=== PATIENT | female | born 1985 | race Caucasian/White ===

== ENCOUNTER 2021-01-24 11:18 | Inpatient (IN) ==
[2021-01-24] MEDS ORDERED: Isovue-370 500 ML BOTTLE IVP ONE (12:04)
[2021-01-24] MEDS ORDERED: *HR* FentaNYL (PF) 100 MCG/2 ML VIAL IVP ONE (12:04)
[2021-01-24] MEDS ORDERED: Ondansetron 4 MG/2 ML VIAL IVP ONE (12:04)
[2021-01-24] MEDS ORDERED: 0.9 % Sodium Chloride 1,000 ML IVC ONE (12:04)
[2021-01-24 12:50] LABS: Basophils % 0.3 %; Eosinophils # 0.1 K/mcL (0.0-0.6); Eosinophils % 0.6 %; Hematocrit 42.3 % (35.3-44.9); Hemoglobin 15.4 g/dL (11.5-15.4); Immature Granulocytes % 0.2 % (0-4); Lymphocytes # 0.8 K/mcL (0.6-4.6); Lymphocytes % 7.8 %; Mean Corpuscular HGB Conc 36.4 g/dL (31.6-35.5); Mean Corpuscular Hemoglobin 34.4 pg (28.0-33.3); Mean Corpuscular Volume 94.4 fL (83.0-100.0); Monocytes # 0.5 K/mcL (0.0-1.3); Monocytes % 4.8 %; Platelet Count 257 K/mcL (140-400); Red Blood Count 4.48 M/mcL (3.82-4.97); Red Cell Distribution Width 12.5 % (11.5-14.5); Segmented Neutrophils % 86.3 %; White Blood Count 10.5 K/mcL (4.3-11.1)
[2021-01-24 13:11] LABS: Amorphous Sediment,Urine Few per hpf (None-Few); Bacteria,Urine Few per hpf (None-Few); Bilirubin,Urine Negative (Negative); Blood,Urine Negative (Negative); Clarity,Urine Turbid (Clear); Color,Urine Yellow (Yellow); Glucose,Urine (UA) Normal (Normal); Ketones,Urine 20 mg/dL (Negative); Leukocyte Esterase,Urine Negative (Negative); Mucus,Urine Few per lpf (None-Few); Nitrite,Urine Negative (Negative); Protein,Urine 50 mg/dL (Neg-Trace); Specific Gravity,Urine 1.028 (1.010-1.025); Squamous Epithelial Cell,Urine Moderate per hpf (None-Few); Urobilinogen,Urine Normal (Normal); WBC,Urine 0-3 per hpf (0-3)
[2021-01-24] MEDS ORDERED: *HR* HYDROmorphone (PF) 1 MG/ML SYRINGE IVP ONE (13:18)
[2021-01-24 13:30] LABS: Troponin I < 0.03 ng/mL (< 0.04)
[2021-01-24 13:31] LABS: Alanine Aminotransferase 33 Units/L (7-52); Albumin 4.6 g/dL (3.5-5.7); Albumin/Globulin Ratio 1.7 (1.1-2.2); Alkaline Phosphatase 64 Units/L (34-104); Aspartate Amino Transferase 31 Units/L (13-39); BUN/Creatinine Ratio 16 (6-26); Bilirubin,Direct 0.2 mg/dL (0.0-0.2); Bilirubin,Indirect 0.5 mg/dL (0.0-1.0); Bilirubin,Total 0.7 mg/dL (0.3-1.0); Blood Urea Nitrogen 8 mg/dL (6-20); Calcium 9.4 mg/dL (8.6-10.3); Carbon Dioxide 25 mEq/L (23-29); Chloride 98 mEq/L (98-107); Globulin 2.7 g/dL (2.4-3.5); Glucose 145 mg/dL (70-105); Lipase 1144 Units/L (11-82); Osmolality,Calculated 279 (280-300); Potassium 3.5 mEq/L (3.5-5.1); Sodium 134 mEq/L (136-145); Total Protein 7.3 g/dL (6.4-8.9); eGFR For African Americans > 60 (> 60); eGFR For Non-African Americans > 60 (> 60)
[2021-01-24] MEDS ORDERED: Naloxone 0.4 MG/ML INJ IVP PRN (14:01)
[2021-01-24] MEDS ORDERED: Ondansetron 4 MG/2 ML VIAL IVP PRN (14:01)
[2021-01-24] MEDS ORDERED: *HR* Dextrose 50 % in Water (Syg) 50 ML SYRINGE IVP PRN (14:03)
[2021-01-24] MEDS ORDERED: Dextrose Gel 15 GM/37.5 ML TUBE PO PRN ×2 (14:03)
[2021-01-24] MEDS ORDERED: D5% in Water 1,000 ML IVC PRN (14:03)
[2021-01-24] MEDS: Ringers Solution, Lactated 1,000 ML IVC SCH (15:36)
[2021-01-24] MEDS ORDERED: *HR* LORazepam 2 MG/ML VIAL IVP PRN ×3 (15:46→15:47)
[2021-01-24 17:54] LABS: Chol/HDL Ratio 1.4 (0-4.9); Cholesterol 181 mg/dL (< 200); Ethanol < 10 mg/dL (Less than 10); HDL Cholesterol 126 mg/dL (40-59); LDL Cholesterol,Calculated 48 mg/dL (< 100); Triglycerides 36 mg/dL (< 150)
[2021-01-24] MEDS: *HR* Heparin 5,000 UNIT/ML VIAL SQ SCH (17:57)
[2021-01-24] MEDS: Insulin LISPRO 300 UNITS/3 ML VIAL SUBQ SCH (17:57)
[2021-01-25] MEDS: Ringers Solution, Lactated 1,000 ML IVC SCH ×3 (00:07→17:20)
[2021-01-25] MEDS: Insulin LISPRO 300 UNITS/3 ML VIAL SUBQ SCH ×4 (00:08→17:47)
[2021-01-25 01:03] LABS: Basophils % 0.2 %; Eosinophils # 0.1 K/mcL (0.0-0.6); Eosinophils % 0.6 %; Hematocrit 43.8 % (35.3-44.9); Hemoglobin 15.5 g/dL (11.5-15.4); Immature Granulocytes % 0.4 % (0-4); Lymphocytes # 0.7 K/mcL (0.6-4.6); Lymphocytes % 8.4 %; Mean Corpuscular HGB Conc 35.4 g/dL (31.6-35.5); Mean Corpuscular Volume 96.1 fL (83.0-100.0); Mean Platelet Volume 9.9 fL (9.4-12.4); Monocytes # 0.3 K/mcL (0.0-1.3); Neutrophils # 7.2 K/mcL (1.6-8.9); Platelet Count 203 K/mcL (140-400); Red Blood Count 4.56 M/mcL (3.82-4.97); Red Cell Distribution Width 12.7 % (11.5-14.5); Segmented Neutrophils % 86.4 %; White Blood Count 8.3 K/mcL (4.3-11.1)
[2021-01-25 01:14] LABS: Activated Partial Thrombo Time 31.7 Seconds (26.0-36.0)
[2021-01-25 01:20] LABS: BUN/Creatinine Ratio 11 (6-26); Blood Urea Nitrogen 6 mg/dL (6-20); Calcium 8.4 mg/dL (8.6-10.3); Carbon Dioxide 24 mEq/L (23-29); Chloride 101 mEq/L (98-107); Glucose 96 mg/dL (70-105); Magnesium 1.5 mg/dL (1.6-2.6); Osmolality,Calculated 275 (280-300); Phosphorous 2.9 mg/dL (2.7-4.5); Potassium 3.5 mEq/L (3.5-5.1); Sodium 134 mEq/L (136-145); eGFR For African Americans > 60 (> 60); eGFR For Non-African Americans > 60 (> 60)
[2021-01-25] MEDS: *HR* Heparin 5,000 UNIT/ML VIAL SQ SCH ×2 (04:17→17:28)
[2021-01-25] MEDS: Pantoprazole 40 MG VIAL IVP SCH (07:41)
[2021-01-26 02:21] LABS: Basophils % 0.2 %; Eosinophils # 0.2 K/mcL (0.0-0.6); Eosinophils % 2.1 %; Hematocrit 41.2 % (35.3-44.9); Hemoglobin 14.8 g/dL (11.5-15.4); Immature Granulocytes % 0.4 % (0-4); Lymphocytes # 0.7 K/mcL (0.6-4.6); Lymphocytes % 7.8 %; Mean Corpuscular HGB Conc 35.9 g/dL (31.6-35.5); Mean Corpuscular Hemoglobin 34.7 pg (28.0-33.3); Mean Corpuscular Volume 96.7 fL (83.0-100.0); Mean Platelet Volume 10.3 fL (9.4-12.4); Monocytes # 0.5 K/mcL (0.0-1.3); Monocytes % 5.4 %; Neutrophils # 7.9 K/mcL (1.6-8.9); Platelet Count 160 K/mcL (140-400); Red Blood Count 4.26 M/mcL (3.82-4.97); Red Cell Distribution Width 12.5 % (11.5-14.5); Segmented Neutrophils % 84.1 %; White Blood Count 9.3 K/mcL (4.3-11.1)
[2021-01-26 02:33] LABS: Alanine Aminotransferase 15 Units/L (7-52); Albumin 3.3 g/dL (3.5-5.7); Albumin/Globulin Ratio 1.3 (1.1-2.2); Alkaline Phosphatase 57 Units/L (34-104); Aspartate Amino Transferase 15 Units/L (13-39); BUN/Creatinine Ratio 6 (6-26); Bilirubin,Total 0.6 mg/dL (0.3-1.0); Blood Urea Nitrogen 3 mg/dL (6-20); Calcium 8.1 mg/dL (8.6-10.3); Carbon Dioxide 23 mEq/L (23-29); Chloride 100 mEq/L (98-107); Globulin 2.5 g/dL (2.4-3.5); Glucose 74 mg/dL (70-105); Osmolality,Calculated 269 (280-300); Potassium 4.3 mEq/L (3.5-5.1); Sodium 132 mEq/L (136-145); Total Protein 5.8 g/dL (6.4-8.9); eGFR For African Americans > 60 (> 60); eGFR For Non-African Americans > 60 (> 60)
[2021-01-26] MEDS: Insulin LISPRO 300 UNITS/3 ML VIAL SUBQ SCH ×4 (03:29→18:15)
[2021-01-26] MEDS: Ringers Solution, Lactated 1,000 ML IVC SCH ×2 (04:45→10:23)
[2021-01-26] MEDS: *HR* Heparin 5,000 UNIT/ML VIAL SQ SCH ×2 (04:49→18:19)
[2021-01-26] MEDS: Pantoprazole 40 MG VIAL IVP SCH (10:24)
[2021-01-26] MEDS: Melatonin 3 MG TABLET PO PRN (21:27)
[2021-01-27 02:06] LABS: BUN/Creatinine Ratio 6 (6-26); Blood Urea Nitrogen 3 mg/dL (6-20); Calcium 8.5 mg/dL (8.6-10.3); Carbon Dioxide 26 mEq/L (23-29); Chloride 102 mEq/L (98-107); Glucose 162 mg/dL (70-105); Lipase 392 Units/L (11-82); Magnesium 1.8 mg/dL (1.6-2.6); Osmolality,Calculated 280 (280-300); Potassium 3.8 mEq/L (3.5-5.1); Sodium 135 mEq/L (136-145); eGFR For African Americans > 60 (> 60); eGFR For Non-African Americans > 60 (> 60)
[2021-01-27] MEDS: *HR* Heparin 5,000 UNIT/ML VIAL SQ SCH ×2 (05:12→18:15)
[2021-01-27] MEDS: Pantoprazole 40 MG VIAL IVP SCH (09:02)
[2021-01-27] MEDS: Melatonin 3 MG TABLET PO PRN (22:05)
[2021-01-28 02:00] LABS: BUN/Creatinine Ratio 16 (6-26); Blood Urea Nitrogen 8 mg/dL (6-20); Carbon Dioxide 23 mEq/L (23-29); Chloride 104 mEq/L (98-107); Glucose 138 mg/dL (70-105); Osmolality,Calculated 281 (280-300); Potassium 3.8 mEq/L (3.5-5.1); Sodium 135 mEq/L (136-145); eGFR For African Americans > 60 (> 60); eGFR For Non-African Americans > 60 (> 60)
[2021-01-28] MEDS: *HR* Heparin 5,000 UNIT/ML VIAL SQ SCH (06:15)
[2021-01-28 07:21] VITALS: BP 143/94; PULSE 65; TEMP 98.3; O2SAT 97
== END 2021-01-28 12:34 | disposition home or self-care (01) | DRG 440 ==
LOC: EMEROOARM 11:18 → 2ANU 11:18 → SUATTDRO 14:39 → 2ANU 15:11 → SUATTDRO 01-25 17:26
PROVIDERS: ADMIT Internal Medicine; ATTEND Internal Medicine

== ENCOUNTER 2022-02-21 05:20 | Inpatient (IN) ==
[~2022-02-21 05:20] MED LIST: Azithromycin 500 MG in 0.9 % Sodium Chloride 250 ML IVPB PRN; Famotidine 20 MG/2 ML VIAL IVP PRN; Lidocaine 1% 20 ML MDV INFILT PRN; Metoclopramide 10 MG/2 ML VIAL IVP PRN; Naloxone 0.4 MG/ML INJ IVP PRN; Ondansetron 4 MG/2 ML VIAL IVP PRN; miSOPROStoL 25 MCG TABLET PO PRN
[2022-02-21] MEDS: Ringers Solution, Lactated 1,000 ML IVC SCH ×2 (05:46→08:54)
[2022-02-21 05:51] LABS: Basophils # 0.1 K/mcL (0.0-0.2); Basophils % 0.4 %; Eosinophils # 0.2 K/mcL (0.0-0.6); Eosinophils % 1.6 %; Hematocrit 37.4 % (35.3-44.9); Hemoglobin 12.7 g/dL (11.5-15.4); Immature Granulocytes % 0.5 % (0-4); Lymphocytes # 2.3 K/mcL (0.6-4.6); Lymphocytes % 19.7 %; Mean Corpuscular Hemoglobin 29.8 pg (28.0-33.3); Mean Corpuscular Volume 87.8 fL (83.0-100.0); Mean Platelet Volume 10.1 fL (9.4-12.4); Monocytes # 0.9 K/mcL (0.0-1.3); Monocytes % 7.4 %; Neutrophils # 8.1 K/mcL (1.6-8.9); Platelet Count 309 K/mcL (140-400); Red Blood Count 4.26 M/mcL (3.82-4.97); Red Cell Distribution Width 13.2 % (11.5-14.5); Segmented Neutrophils % 70.4 %; White Blood Count 11.6 K/mcL (4.3-11.1)
[2022-02-21 06:06] LABS: Alanine Aminotransferase 18 Units/L (7-52); Aspartate Amino Transferase 18 Units/L (13-39); BUN/Creatinine Ratio 19 (6-26); Blood Urea Nitrogen 12 mg/dL (6-20); Lactate Dehydrogenase 214 Units/L (140-271); Uric Acid 5.6 mg/dL (2.3-7.6)
[2022-02-21] MEDS ORDERED: *HR* Nalbuphine 10 MG/ML AMPUL IV PRN (07:14)
[2022-02-21] MEDS ORDERED: EPHEDrine sulfate 50 MG/10 ML VIAL IVP PRN (08:46)
[2022-02-21] MEDS ORDERED: Epidural Premix (fent/bupiv) 110 ML EP SCH (09:00)
[2022-02-21 10:32] LABS: Creatinine,Urine 60 mg/dL; Protein/Creatinine Ratio,Urine 0.37 mg/mg (0.00-0.20)
[2022-02-21 10:46] LABS: Amphetamine Screen,Urine Positive ng/mL (Cutoff=1000); Barbiturate Screen,Urine Negative ng/mL (Cutoff=200); Benzodiazepines Screen,Urine Negative ng/mL (Cutoff=200); Cannabinoid Screen,Urine Negative ng/mL (Cutoff = 50); Cocaine Screen,Urine Negative ng/mL (Cutoff= 300); Opiate Screen,Urine Negative ng/mL (Cutoff=300); Phencyclidine Screen,Urine Negative ng/mL (Cutoff=25)
[2022-02-21] MEDS ORDERED: Oxytocin 30 UNIT/503 ML BAG IVC SCH ×2 (12:45→23:15)
[2022-02-21] MEDS ORDERED: *HR* Labetalol 20 MG/4 ML SYRINGE IVP PRN (16:00)
[2022-02-21] MEDS ORDERED: Magnesium Sulf 20 gm/SW 500mL 6 GM/150 ML BAG IV ONE (16:04)
[2022-02-21] MEDS ORDERED: Calcium Gluconate 1,000 MG/10 ML VIAL IVP PRN (16:04)
[2022-02-21] MEDS ORDERED: *HR* Labetalol 20 MG/4 ML SYRINGE IVP ONE ×2 (16:06→19:24)
[2022-02-21] MEDS ORDERED: Magnesium Sulf 20 gm/SW 500mL 20 GM/500 ML IV.SOLN IVC SCH (16:15)
[2022-02-21] MEDS ORDERED: 0.9 % Sodium Chloride 1,000 ML ONE (18:04)
[2022-02-21] MEDS ORDERED: Lidocaine/EPI 1:200k 2% PF 20 ML VIAL ONE (18:28)
[2022-02-21] MEDS ORDERED: *HR* FentaNYL (PF) 100 MCG/2 ML VIAL ONE (18:28)
[2022-02-21] MEDS ORDERED: Sodium Bicarbonate 50 MEQ/50 ML VIAL ONE (18:28)
[2022-02-21] MEDS ORDERED: Ondansetron 4 MG/2 ML VIAL ONE (18:54)
[2022-02-21] MEDS ORDERED: Ketorolac 30 MG/ML VIAL ONE (18:57)
[2022-02-21] MEDS ORDERED: *HR* Oxytocin 10 UNIT/ML VIAL ONE (18:57)
[2022-02-21] MEDS ORDERED: Acetaminophen IV 1,000 MG/100 ML BAG IVPB ONE (19:00)
[2022-02-21] MEDS ORDERED: *HR* Morphine Sulfate/PF 10 MG/10 ML AMPUL ONE (19:02)
[2022-02-21] MEDS ORDERED: Rho Immune Globulin 1,500 UNIT SYRINGE IM ONE (23:15)
[2022-02-21] MEDS ORDERED: Metoclopramide 10 MG/2 ML VIAL IVP PRN (23:15)
[2022-02-21] MEDS ORDERED: Ondansetron 4 MG/2 ML VIAL IVP PRN (23:15)
[2022-02-21] MEDS ORDERED: Ringers Solution, Lactated 1,000 ML ONE (23:45)
[2022-02-22] MEDS: cephALEXin 500 MG CAPSULE PO SCH ×4 (00:17→21:28)
[2022-02-22] MEDS: Acetaminophen 325 MG TABLET PO SCH ×4 (00:18→19:48)
[2022-02-22] MEDS: Ibuprofen 600 MG TABLET PO SCH ×4 (00:18→19:48)
[2022-02-22] MEDS: metroNIDAZOLE 500 MG TABLET PO SCH ×4 (00:18→21:25)
[2022-02-22] MEDS: Ringers Solution, Lactated 1,000 ML IVC SCH ×2 (00:19→12:39)
[2022-02-22] MEDS ORDERED: Calcium Gluconate 1,000 MG/10 ML VIAL IVP PRN (02:32)
[2022-02-22] MEDS ORDERED: Magnesium Sulf 20 gm/SW 500mL 20 GM/500 ML IV.SOLN IVC SCH (02:45)
[2022-02-22 03:49] LABS: Basophils # 0.1 K/mcL (0.0-0.2); Basophils % 0.2 %; Eosinophils # 0.1 K/mcL (0.0-0.6); Eosinophils % 0.3 %; Hematocrit 34.8 % (35.3-44.9); Hemoglobin 11.9 g/dL (11.5-15.4); Immature Granulocytes % 0.5 % (0-4); Lymphocytes # 1.5 K/mcL (0.6-4.6); Lymphocytes % 6.4 %; Mean Corpuscular HGB Conc 34.2 g/dL (31.6-35.5); Mean Corpuscular Hemoglobin 29.9 pg (28.0-33.3); Mean Corpuscular Volume 87.4 fL (83.0-100.0); Mean Platelet Volume 9.9 fL (9.4-12.4); Monocytes % 4.1 %; Neutrophils # 20.5 K/mcL (1.6-8.9); Platelet Count 284 K/mcL (140-400); Red Blood Count 3.98 M/mcL (3.82-4.97); Red Cell Distribution Width 13.1 % (11.5-14.5); Segmented Neutrophils % 88.5 %; White Blood Count 23.2 K/mcL (4.3-11.1)
[2022-02-22] MEDS: Simethicone 80 MG TAB.CHEW PO PRN ×2 (08:50→14:44)
[2022-02-22] MEDS: Prenatal Vit/FA 1 EACH TABLET PO SCH (08:50)
[2022-02-22] MEDS ORDERED: NON-FORMULARY MEDICATION 1 EACH EACH (Prenatal Vits96/Iron Fum/Folic [Prenatal Tablet] 1 E PO SCH (09:00)
[2022-02-22] MEDS: *HR* OxyCODONE Immed Rel 5 MG TABLET PO PRN ×2 (11:02→18:57)
[2022-02-22] MEDS: polyethylene glycoL 3350 17 GM POWD.PACK PO PRN (11:33)
[2022-02-23] MEDS: *HR* OxyCODONE Immed Rel 5 MG TABLET PO PRN ×4 (01:13→16:01)
[2022-02-23] MEDS: Ibuprofen 600 MG TABLET PO SCH ×4 (03:56→22:23)
[2022-02-23] MEDS: Acetaminophen 325 MG TABLET PO SCH ×4 (03:56→22:24)
[2022-02-23] MEDS: cephALEXin 500 MG CAPSULE PO SCH (07:29)
[2022-02-23] MEDS: Prenatal Vit/FA 1 EACH TABLET PO SCH (07:29)
[2022-02-23] MEDS: metroNIDAZOLE 500 MG TABLET PO SCH ×2 (07:29→14:46)
[2022-02-23] MEDS ORDERED: Acetaminophen 325 MG TABLET PO ONE (10:30)
[2022-02-23] MEDS: polyethylene glycoL 3350 17 GM POWD.PACK PO PRN (16:05)
[2022-02-23] MEDS: Simethicone 80 MG TAB.CHEW PO PRN (16:05)
[2022-02-24] MEDS: *HR* OxyCODONE Immed Rel 5 MG TABLET PO PRN ×3 (04:51→12:16)
[2022-02-24] MEDS: Ibuprofen 600 MG TABLET PO SCH ×2 (04:51→10:35)
[2022-02-24] MEDS: Acetaminophen 325 MG TABLET PO SCH ×2 (04:51→10:35)
[2022-02-24 05:25] LABS: Basophils # 0.1 K/mcL (0.0-0.2); Basophils % 0.4 %; Eosinophils # 0.3 K/mcL (0.0-0.6); Eosinophils % 2.2 %; Hematocrit 29.6 % (35.3-44.9); Immature Granulocytes % 0.7 % (0-4); Lymphocytes # 2.1 K/mcL (0.6-4.6); Lymphocytes % 17.2 %; Mean Corpuscular HGB Conc 33.1 g/dL (31.6-35.5); Mean Corpuscular Hemoglobin 29.9 pg (28.0-33.3); Mean Corpuscular Volume 90.2 fL (83.0-100.0); Mean Platelet Volume 10.2 fL (9.4-12.4); Monocytes # 0.6 K/mcL (0.0-1.3); Monocytes % 5.4 %; Neutrophils # 8.9 K/mcL (1.6-8.9); Platelet Count 317 K/mcL (140-400); Red Blood Count 3.28 M/mcL (3.82-4.97); Red Cell Distribution Width 13.4 % (11.5-14.5); Segmented Neutrophils % 74.1 %; White Blood Count 11.9 K/mcL (4.3-11.1)
[2022-02-24 05:29] LABS: Hemoglobin 9.8 g/dL (11.5-15.4)
[2022-02-24] MEDS: Simethicone 80 MG TAB.CHEW PO PRN (08:08)
[2022-02-24] MEDS: polyethylene glycoL 3350 17 GM POWD.PACK PO PRN (08:09)
[2022-02-24 08:27] VITALS: BP 137/88; PULSE 87; TEMP 97.9; O2SAT 98
[2022-02-24] MEDS: Prenatal Vit/FA 1 EACH TABLET PO SCH (08:33)
== END 2022-02-24 14:08 | disposition home or self-care (01) | DRG 788 ==
LOC: 1NENULAB → 1NENUOBS 23:14
PROVIDERS: ADMIT Obstetrics & Gynecology; ATTEND Obstetrics & Gynecology